=== PATIENT | female | born 1930 ===

== ENCOUNTER 2017-10-18 11:07 | Emergency (ER) | payer MEDICARE, OTHER ==
--- NOTE | 2017-10-18 11:48 | ED PDOC ---
Syncope/Near Syncope/Dizziness Time Seen by Provider: 10/18/17 11:39 History Per: Patient Onset/Duration Of Symptoms: Days (2) Current Symptoms Are (Timing): Still Present Associated Symptoms Preceding Syncopal Episode: No Predromal Symptoms (Sudden Onset) Seizure Or Post-ictal Symptoms: None Fall Associated With With Symptoms: No Severity: Mild Additional Complaint(s): Generalized weakness and fatigue x 2 days. Denies focal weakness or LOC. Also c/ o headache. Denies fever. or chest pain. Past Medical History Vital Signs: Last Vital Signs Temp 98.7 F 10/18/17 11:15 Pulse 92 H 10/18/17 11:15 Resp 20 10/18/17 11:15 BP 190/76 H 10/18/17 11:15 Pulse Ox 96 10/18/17 11:15 - Medical History PMH: Diabetes, HTN - Family History Family History: States: Unknown Family Hx - Allergies Allergies/Adverse Reactions: Allergies Allergy/AdvReac Type Severity Reaction Status Date / Time Unobtainable Allergy Verified 10/18/17 11:39 Review of Systems ROS Statement: Except As Marked, All Systems Reviewed And Found Negative Constitutional: Positive for: Weakness Neurological: Positive for: Headache Physical Exam - Reviewed Nursing Documentation Reviewed: Yes Vital Signs Reviewed: Yes - Physical Exam Appears: Positive for: Non-toxic, No Acute Distress Head Exam: Positive for: ATRAUMATIC, NORMAL INSPECTION, NORMOCEPHALIC Skin: Positive for: Normal Color, Warm, DRY Eye Exam: Positive for: EOMI, Normal appearance, PERRL ENT: Positive for: Normal ENT Inspection Neck: Positive for: Normal, Painless ROM Cardiovascular/Chest: Positive for: Regular Rate, Rhythm Respiratory: Positive for: CNT, Normal Breath Sounds Gastrointestinal/Abdominal: Positive for: Normal Exam, Soft Back: Positive for: Normal Inspection Extremity: Positive for: Normal ROM Neurologic/Psych: Positive for: Alert, Oriented - Laboratory Results Result Diagrams: 10/18/17 12:30 10/18/17 12:30 - ECG O2 Sat by Pulse Oximetry: 96 Disposition - Clinical Impression Clinical Impression: Dehydration, Hypertension - Patient ED Disposition Is Patient to be Admitted: No - Disposition Referrals: [facility] [Outside] Disposition: Routine/Home Disposition Time: 14:31 Condition: FAIR Instructions: Dehydration, Adult (DC), High Blood Pressure in Adults Print Language: HUNGARIAN
[2017-10-18 12:42] LABS: BASO # 0.1 K/uL (0.0-0.2); BASO % 0.7 % (0.0-2.0); HEMOGLOBIN 12.5 g/dL (12.0-16.0); LYMPH # 2.4 K/uL (1.0-4.3); LYMPH % 24.8 % (20.0-40.0); MEAN CELL VOLUME 89.1 fl (81.0-99.0); MEAN CORPUSCULAR HEMOGLOBIN 29.9 pg (27.0-31.0); MEAN CORPUSCULAR HGB CONC 33.5 g/dL (33.0-37.0); MEAN PLATELET VOLUME 9.9 fl (7.2-11.7); MONO # 0.8 K/uL (0.0-0.8); MONO % 8.7 % (0.0-10.0); NEUT # 6.3 K/uL (1.8-7.0); NEUT % 65.8 % (50.0-75.0); RBC 4.19 Mil/uL (3.80-5.20); RED CELL DISTRIBUTION WIDTH 14.1 % (11.5-14.5); WHITE BLOOD COUNT 9.6 K/uL (4.8-10.8)
[2017-10-18 12:57] LABS: BLOOD UREA NITROGEN 21 mg/dl (7-17)
[2017-10-18 12:58] LABS: CALCIUM 10.6 mg/dL (8.4-10.2); GFR NON-AFRICAN AMERICAN > 60
[2017-10-18 12:59] LABS: ALBUMIN 4.4 g/dL (3.5-5.0); ALT/SGPT 27 U/L (9-52); AST/SGOT 29 U/L (14-36)
[2017-10-18 14:18] VITALS: RESP 19
[2017-10-18 15:20] VITALS: BP 146/78; PULSE 78; TEMP 97; O2SAT 98
--- NOTE | 2017-10-18 16:28 | CARD ---
APPROVED REPORT Date of service: 10/18/2017 EKG Measurement Heart [id number] NC 168P74 [id number] <Conclusion> Normal sinus rhythm Normal ECG
== END 2017-10-18 15:21 | disposition home or self-care (01) ==
LOC: H.ER 11:07
DX: E86.0 Dehydration (principal); I10 Essential (primary) hypertension; E11.9 Type 2 diabetes mellitus without complications

== ENCOUNTER 2018-02-05 10:05 | Emergency (ER) | payer MEDICARE, OTHER ==
[2018-02-05 10:12] VITALS: BMI 33.8
[2018-02-05 10:42] LABS: BASO # 0.1 K/uL (0.0-0.2); BASO % 0.9 % (0.0-2.0); EOS % 0.1 % (0.0-4.0); HEMOGLOBIN 12.8 g/dL (12.0-16.0); MEAN CORPUSCULAR HEMOGLOBIN 29.4 pg (27.0-31.0); MEAN CORPUSCULAR HGB CONC 32.6 g/dL (33.0-37.0); MEAN PLATELET VOLUME 11.3 fl (7.2-11.7); MONO # 0.6 K/uL (0.0-0.8); MONO % 5.8 % (0.0-10.0); NEUT % 65.2 % (50.0-75.0); RBC 4.35 Mil/uL (3.80-5.20); RED CELL DISTRIBUTION WIDTH 13.9 % (11.5-14.5); WHITE BLOOD COUNT 10.7 K/uL (4.8-10.8)
[2018-02-05 10:44] LABS: INR 2.9; PROTHROMBIN TIME 33.1 Seconds (9.8-13.1)
[2018-02-05 10:46] LABS: PARTIAL THROMBOPLASTIN TIME 55.1 Seconds (25.6-37.1)
[2018-02-05] MEDS ORDERED: Labetalol 5 mg/ml Inj 20ML IVP STA (10:47)
[2018-02-05] MEDS ORDERED: Labetalol 5mg/ml (4ml) ONE (10:55)
[2018-02-05] MEDS ORDERED: Labetalol 5mg/ml (4ml) IVP STA (11:01)
--- NOTE | 2018-02-05 11:04 | ED PDOC ---
HPI: Chest Pain Time Seen by Provider: 02/05/18 10:22 Chief Complaint (Nursing): Palpitations Chief Complaint (Provider): Palpitations History Per: Patient, Family (Daughter) History/Exam Limitations: no limitations Onset/Duration Of Symptoms: Hrs (x3) Current Symptoms Are (Timing): Still Present Additional Complaint(s): 87 year old female presents to the ED with daughter complaining of having palpitations since 09:00 this morning. Daughter states patient's medications were changed by her outbound telemarketer, Dr. Burden. Patient's Toprol was discontinued and some other medication that she does not remember was added. Denies chest pain and shortness of breath. PMD: Servando Baldwin Past Medical History Reviewed: Historical Data, Nursing Documentation, Vital Signs Vital Signs: Last Vital Signs Temp 98.5 F 02/05/18 10:26 Pulse 114 H 02/05/18 10:22 Resp BP 164/82 H 02/05/18 10:22 Pulse Ox 97 02/05/18 10:22 - Medical History PMH: Asthma, Cardia Arrhythmia, Diabetes, HTN, Chronic Kidney Disease - Surgical History Surgical History: Cholecystectomy - Family History Family History: States: Unknown Family Hx - Home Medications Home Medications: Ambulatory Orders Medication Instructions Recorded Carvedilol [Coreg] 3.125 mg PO BID #14 tab 02/05/18 Clonidine HCl [Catapres] 0.3 mg PO DAILY 02/05/18 Hydralazine HCl 50 mg PO TID 02/05/18 Irbesartan 300 mg PO DAILY 02/05/18 Irbesartan 300 mg PO DAILY 02/05/18 Latanoprost 0.005% Opht [Xalatan 1 drop EACHEYE DAILY 02/05/18 Opht] Metformin HCl [Glucophage] 500 mg PO DAILY 02/05/18 Nitrofurantoin Macrocrystals 100 mg PO BID #13 cap 02/05/18 [Macrobid] Torsemide [Demadex] 20 mg PO DAILY 02/05/18 Torsemide [Demadex] 20 mg PO DAILY 02/05/18 Warfarin [Coumadin] 5 mg PO DAILY 02/05/18 amLODIPine [Norvasc] 5 mg PO DAILY 02/05/18 hydrALAZINE [Apresoline] 50 mg PO TID 02/05/18 - Allergies Allergies/Adverse Reactions: Allergies Allergy/AdvReac Type Severity Reaction Status Date / Time No Known Allergies Allergy Verified 02/05/18 10:13 Review of Systems ROS Statement: Except As Marked, All Systems Reviewed And Found Negative Cardiovascular: Positive for: Palpitations. Negative for: Chest Pain Respiratory: Negative for: Shortness of Breath Physical Exam - Reviewed Nursing Documentation Reviewed: Yes Vital Signs Reviewed: Yes - Physical Exam Appears: Positive for: Non-toxic, No Acute Distress Head Exam: Positive for: ATRAUMATIC, NORMOCEPHALIC Skin: Positive for: Normal Color, Warm, Dry Eye Exam: Positive for: Normal appearance Neck: Positive for: Normal, Painless ROM Cardiovascular/Chest: Positive for: Regular Rate, Rhythm, Murmur, Tachycardia Respiratory: Positive for: Normal Breath Sounds. Negative for: Wheezing, Respiratory Distress Extremity: Positive for: Normal ROM Neurologic/Psych: Positive for: Alert, Oriented (x3). Negative for: Motor/Sensory Deficits - Laboratory Results Result Diagrams: 02/05/18 10:35 02/05/18 10:35 - ECG O2 Sat by Pulse Oximetry: 97 (RA) Pulse Ox Interpretation: Normal Medical Decision Making Medical Decision Making: Initial Impression: Palpitations Initial Plan: --ECG --CMP --TSH --Troponin --ED urine dipstick --CBC --PTT --Prothrombin time --Chest X-ray --Labetalol 20mg IV --Urinalysis Accession No. : [id number] Patient Name / ID : RADAMES BRANDON / [id number] Exam Date : 02/05/2018 10:26:04 ( Approved ) Study Comment : Sex / Age : F / 87Y Creator : Cricket Patton MD Dictator : Cricket Patton MD Electrical Test Technician : Clinical Trainer : Cricket Patton MD Approver2 : Report Date : 02/05/2018 16:05:17 My Comment : Date of service: 02/05/2018 HISTORY: Palpitations COMPARISON: No prior. FINDINGS: LUNGS: No definite acute infiltrate bilaterally. Patient rotated toward the right. Reversed apical lordotic image capture is noted as well. PLEURA: No significant pleural effusion identified, no pneumothorax apparent. CARDIOVASCULAR: No aortic atherosclerotic calcification present. No gross cardiomegaly. No definite pulmonary vascular congestion evident.. No pulmonary vascular congestion. OSSEOUS STRUCTURES: No significant abnormalities. VISUALIZED UPPER ABDOMEN: Normal. OTHER FINDINGS: None. IMPRESSION: No infiltrates or gross pulmonary vascular congestion. Cardiomegaly not excluded though not definite either. Technically limited exam. 14:15 REPEAT VITALS: HR 97 BP 142/71 14:[address] Morales (covering for Dr. Burden), recommends Coreg 3.125 mg bid and follow-up with Dr. Burden next week. Scribe Attestation: Documented by Claudio Gray acting as a scribe for Zenobia Peña MD. Provider Scribe Attestation: All medical record entries made by the Scribe were at my direction and personally dictated by me. I have reviewed the chart and agree that the record accurately reflects my personal performance of the history, physical exam, medical decision making, and the department course for this patient. I have also personally directed, reviewed, and agree with the discharge instructions and disposition. Disposition - Clinical Impression Clinical Impression: Palpitations, UTI (urinary tract infection) - Disposition Referrals: Elbert Burden MD [Staff Provider] - Disposition: Routine/Home Disposition Time: 14:22 Condition: IMPROVED Prescriptions: Carvedilol [Coreg] 3.125 mg PO BID #14 tab Nitrofurantoin Macrocrystals [Macrobid] 100 mg PO BID #13 cap Instructions: Urinary Tract Infections in Adults, Palpitations Forms: [employer] (Swedish) Print Language: SLOVENIAN
[2018-02-05 11:12] LABS: ALBUMIN 4.5 g/dL (3.5-5.0); ALT/SGPT 29 U/L (9-52); AST/SGOT 24 U/L (14-36); BLOOD UREA NITROGEN 19 mg/dl (7-17); CALCIUM 10.3 mg/dL (8.4-10.2); GFR NON-AFRICAN AMERICAN > 60
[2018-02-05 11:22] LABS: SQUAMOUS EPITHIAL 2 /hpf (0-5); URINE BILIRUBIN NEGATIVE (NEGATIVE); URINE BLOOD NEGATIVE (NEGATIVE); URINE CLARITY SLIGHTY-CLOUDY (Clear); URINE COLOR STRAW (YELLOW); URINE GLUCOSE (UA) >=500 mg/dL (Normal); URINE LEUKOCYTE ESTERASE NEG Leu/uL (Negative); URINE PROTEIN NEGATIVE (NEGATIVE); URINE UROBILINOGEN 0.2-1.0 mg/dL (0.2-1.0)
[2018-02-05 11:28] LABS: URINE BACTERIA MOD (<OCC)
[2018-02-05] MEDS ORDERED: Sodium Chloride 0.9% 1,000 ML IV STA (12:13)
[2018-02-05] MEDS ORDERED: Insulin Regular 100 units/ml IV STA (12:13)
[2018-02-05 14:56] VITALS: BP 143/68; PULSE 98; RESP 15; TEMP 98.1
--- NOTE | 2018-02-05 16:09 | RAD ---
Date of service: 02/05/2018 HISTORY: Palpitations COMPARISON: No prior. FINDINGS: LUNGS: No definite acute infiltrate bilaterally. Patient rotated toward the right. Reversed apical lordotic image capture is noted as well. PLEURA: No significant pleural effusion identified, no pneumothorax apparent. CARDIOVASCULAR: No aortic atherosclerotic calcification present. No gross cardiomegaly. No definite pulmonary vascular congestion evident.. No pulmonary vascular congestion. OSSEOUS STRUCTURES: No significant abnormalities. VISUALIZED UPPER ABDOMEN: Normal. OTHER FINDINGS: None. IMPRESSION: No infiltrates or gross pulmonary vascular congestion. Cardiomegaly not excluded though not definite either. Technically limited exam.
--- NOTE | 2018-02-05 22:46 | CARD ---
APPROVED REPORT Date of service: 02/05/2018 EKG Measurement Heart [id number] CT 160P67 [id number] <Conclusion> Sinus tachycardia Possible Left atrial enlargement Incomplete right bundle branch block Nonspecific ST abnormality Abnormal ECG
[2018-02-06 10:19] VITALS: O2SAT 97
== END 2018-02-05 14:56 | disposition home or self-care (01) ==
LOC: H.ER 10:05
DX: R00.2 Palpitations (principal); N39.0 Urinary tract infection, site not specified; I12.9 Hypertensive chronic kidney disease with stage 1 through stage 4 chronic kidney disease, or unspecified chronic kidney disease; J45.909 Unspecified asthma, uncomplicated; Z79.01 Long term (current) use of anticoagulants; E11.9 Type 2 diabetes mellitus without complications; Z79.899 Other long term (current) drug therapy; N18.9 Chronic kidney disease, unspecified
CPT/HCPCS: 71045; 80053; 81003; 82948; 84443; 84484; 85025; 85610; 85730; 93005; 99285; J7030

== ENCOUNTER 2018-02-14 06:37 | Emergency (ER) | payer MEDICARE, OTHER ==
[2018-02-14 06:37] VITALS: BMI 33.8
--- NOTE | 2018-02-14 07:50 | ED PDOC ---
HPI: Headache Time Seen by Provider: 02/14/18 07:07 Chief Complaint (Nursing): Headache Additional Complaint(s): Pt seen and examined at bedside with attending. 87F PMH HTN, DM, migraines, "clots" on coumadin p/w persistent, atraumatic, frontal/LEFT temporal headache pulsing in nature associated with mild nausea and photosensitivity since her BP medication was changed 02/03/2018. She also d escribes generalized weakness but denies any weakness/numbness/tingling unilateral or speech changes. PMD: Dr Burden Past Medical History Vital Signs: Last Vital Signs Temp 36.7 C 02/14/18 06:54 Pulse 71 02/14/18 06:54 Resp 16 02/14/18 06:54 BP 171/70 H 02/14/18 06:54 Pulse Ox 96 02/14/18 06:54 - Medical History PMH: Asthma, Cardia Arrhythmia, Diabetes, HTN, Chronic Kidney Disease - Surgical History Surgical History: Cholecystectomy - Family History Family History: States: Unknown Family Hx - Home Medications Home Medications: Ambulatory Orders Medication Instructions Recorded Carvedilol [Coreg] 3.125 mg PO BID #14 tab 02/05/18 Clonidine HCl [Catapres] 0.3 mg PO DAILY 02/05/18 Hydralazine HCl 50 mg PO TID 02/05/18 Irbesartan 300 mg PO DAILY 02/05/18 Irbesartan 300 mg PO DAILY 02/05/18 Latanoprost 0.005% Opht [Xalatan 1 drop EACHEYE DAILY 02/05/18 Opht] Metformin HCl [Glucophage] 500 mg PO DAILY 02/05/18 Nitrofurantoin Macrocrystals 100 mg PO BID #13 cap 02/05/18 [Macrobid] Torsemide [Demadex] 20 mg PO DAILY 02/05/18 Torsemide [Demadex] 20 mg PO DAILY 02/05/18 Warfarin [Coumadin] 5 mg PO DAILY 02/05/18 amLODIPine [Norvasc] 5 mg PO DAILY 02/05/18 hydrALAZINE [Apresoline] 50 mg PO TID 02/05/18 - Allergies Allergies/Adverse Reactions: Allergies Allergy/AdvReac Type Severity Reaction Status Date / Time No Known Allergies Allergy Verified 02/14/18 06:54 Review of Systems ROS Statement: Except As Marked, All Systems Reviewed And Found Negative Constitutional: Positive for: Weakness (Generalized) Neurological: Positive for: Headache Physical Exam - Reviewed Vital Signs Reviewed: Yes - Physical Exam Appears: Positive for: Non-toxic Head Exam: Positive for: ATRAUMATIC Skin: Positive for: Warm, Dry Eye Exam: Positive for: EOMI ENT: Positive for: Normal ENT Inspection. Negative for: Nasal Congestion Neck: Positive for: Supple Cardiovascular/Chest: Positive for: Regular Rate, Rhythm. Negative for: Murmur Respiratory: Positive for: Normal Breath Sounds. Negative for: Rales, Wheezing Gastrointestinal/Abdominal: Positive for: Bowel Sounds, Soft. Negative for: Tenderness Extremity: Positive for: Normal ROM, Pedal Edema (trace lower edema). Negative for: Calf Tenderness Neurologic/Psych: Positive for: Alert, Oriented. Negative for: Motor/Sensory Deficits - Laboratory Results Result Diagrams: 02/14/18 07:49 - ECG O2 Sat by Pulse Oximetry: 96 Medical Decision Making Medical Decision Making: Suspect tension versus migraine headache, non-focal. - BMP - Tylenol/Toradol/Reglan - CT head - Reeval Headache is minimal at this time, but pt still c/o "not feeling well". - Urinalysis/UCx 1000 UA negative, awaiting official CT head results 1015 CT head no evidence of hemorrhage. Disposition - Clinical Impression Clinical Impression: Headache, Migraine - Patient ED Disposition Is Patient to be Admitted: No Counseled Patient/Family Regarding: Diagnosis, Need For Followup - Disposition Referrals: Servando Baumann MD [Family Provider] - (3-5 days) Elbert Burden MD [Staff Provider] - (1 day) Disposition: Routine/Home Disposition Time: 11:45 Condition: IMPROVED Additional Instructions: Please: Follow up with sign designer tomorrow, 02/15/2018, as scheduled Follow up with primary care doctor within a week Take Tylenol as needed for headache Return to the ER for worsening headache symptoms not controlled by Tylenol, or for chest pain Instructions: Migraine Headache (DC), Headache, Adult (DC) Forms: [employer] (Georgian) Print Language: GUINEAN
[2018-02-14 08:07] LABS: BLOOD UREA NITROGEN 19 mg/dl (7-17); CALCIUM 9.9 mg/dL (8.4-10.2); GFR NON-AFRICAN AMERICAN > 60
[2018-02-14 09:29] LABS: URINE BILIRUBIN NEGATIVE (NEGATIVE); URINE BLOOD NEGATIVE (NEGATIVE); URINE CLARITY SLIGHTY-CLOUDY (Clear); URINE COLOR YELLOW (YELLOW); URINE GLUCOSE (UA) NEG (Normal); URINE LEUKOCYTE ESTERASE TRACE Leu/uL (Negative); URINE PROTEIN 30 mg/dL (NEGATIVE); URINE UROBILINOGEN 0.2-1.0 mg/dL (0.2-1.0)
[2018-02-14 09:56] LABS: URINE BACTERIA RARE (<OCC)
[2018-02-14 09:57] LABS: SQUAMOUS EPITHIAL 5 /hpf (0-5)
--- NOTE | 2018-02-14 10:05 | CT ---
Date of service: 02/14/2018 PROCEDURE: CT HEAD WITHOUT CONTRAST. HISTORY: Headache COMPARISON: None available. TECHNIQUE: Axial computed tomography images were obtained through the head/brain without intravenous contrast. Radiation dose: Total exam DLP = 768.82 mGy-cm. This CT exam was performed using one or more of the following dose reduction techniques: Automated exposure control, adjustment of the mA and/or kV according to patient size, and/or use of iterative reconstruction technique. FINDINGS: HEMORRHAGE: No intracranial hemorrhage. BRAIN: The bonner-white matter differentiation is well preserved. There is no mass effect or definitive edema pattern appreciated including the cortex. There is proportional expansion of the ventriculosulcal and cisternal spaces however in a pattern most compatible with diffuse cerebral atrophy. A small dilated perivascular space is favored over chronic lacune inferior left basal ganglia. No suspicious extra-axial fluid collection is identified in the midline brain anatomy appears grossly nonfocal as imaged. VENTRICLES: Unremarkable. No hydrocephalus. CALVARIUM: Unremarkable. PARANASAL SINUSES: Unremarkable as visualized. No significant inflammatory changes. MASTOID AIR CELLS: Unremarkable as visualized. No inflammatory changes. OTHER FINDINGS: None. IMPRESSION: Mild age related neuro degenerative findings are appreciated without definite acute intracranial changes by standard CT criteria. Dilated perivascular space is favored over chronic lacune left basal ganglia inferiorly. Follow-up CT or MRI are available if clinically warranted.
[2018-02-14 12:36] VITALS: BP 178/78; PULSE 91; RESP 21; TEMP 98.8; O2SAT 94
== END 2018-02-14 12:15 | disposition home or self-care (01) ==
LOC: H.ER 06:37
DX: G43.909 Migraine, unspecified, not intractable, without status migrainosus (principal); N18.9 Chronic kidney disease, unspecified; J45.909 Unspecified asthma, uncomplicated; E11.22 Type 2 diabetes mellitus with diabetic chronic kidney disease; I12.9 Hypertensive chronic kidney disease with stage 1 through stage 4 chronic kidney disease, or unspecified chronic kidney disease; Z79.01 Long term (current) use of anticoagulants
CPT/HCPCS: 70450; 80048; 81003; 82948; 87086; 96374; 96375; 99284; J1885; J2765